=== PATIENT | female | born 1970 | race Hispanic/Latino ===

== ENCOUNTER 2017-10-29 21:33 | Emergency (ER) | payer OTHER, SELFPAY ==
[2017-10-29 22:32] LABS: #Eosinphils 0.1 thou/uL (0.0-0.7); #Lymphocytes 2.5 thou/uL (1.20-3.40); #Monocytes 0.5 thou/uL (0.11-0.59); #Neutrophils 4.3 thou/uL (1.40-6.50); %Basophils 0.6 % (0.0-1.0); %Eosinophils 1.2 % (0.0-10.0); %Lymphocytes 33.5 % (21.0-51.0); %Monocytes 7.1 % (0.0-10.0); %Neutrophils 57.5 % (42.0-75.0); Hemoglobin 13.1 g/dL (12.0-16.0); Mean Corpuscular HGB CONC 33.4 g/dL (32.0-36.0); Mean Corpuscular Volume 86.8 fl (81.0-99.0); Platelet Count 278 thou/uL (130-400); RBC Distribution Width 13.5 % (11.5-14.5); Red Blood Cell (RBC) Count 4.51 mill/uL (4.20-5.40); White Blood Cell (WBC) Count 7.5 thou/uL (4.8-10.8)
[2017-10-29 22:45] LABS: ALT (SGPT) 21 U/L (8-55); AST (SGOT) 15 U/L (5-34); Albumin 4.3 g/dL (3.5-5.0); Alkaline Phosphatase 63 U/L (40-150); Anion Gap 13 mmol/L (10-20); BUN (Urea Nitrogen) 14 mg/dL (7.0-18.7); Bilirubin, Total 0.2 mg/dL (0.2-1.2); Calc. Creatinine Clearance 0 mL/min (70-130); Calcium 9.3 mg/dL (7.8-10.44); Carbon Dioxide 28 mmol/L (22-29); Chloride 103 mmol/L (98-107); Estimated GFR-MDRD 81; Globulin 2.6 g/dL (2.4-3.5); Glucose 103 mg/dL (70-105); Potassium 3.5 mmol/L (3.5-5.1); Protein, Total 6.9 g/dL (6.0-8.3); Sodium 140 mmol/L (136-145)
--- NOTE | 2017-10-29 22:46 | RAD ---
TWO VIEWS CHEST: 10/29/17 HISTORY: Chest pain. Discomfort. COMPARISON: 03/12/15. FINDINGS: Two views chest: Normal cardiac silhouette. Pulmonary vessels and hilum are normal. Costophrenic angles are clear. No consolidation or mass. No pneumothorax or osseous abnormalities. IMPRESSION: No acute cardiopulmonary process. POS: [facility]
[2017-10-29 22:49] LABS: CKMB 1.4 ng/mL (0-6.6); Troponin I Less than 0.010 ng/mL (< 0.028)
[2017-10-29 23:35] LABS: BHCG - Serum Negative (NEGATIVE); Pregs Control Background? CLEAR/WHITE (CLR/WHITE); Pregs Control Bar Appear? YES (CONTROL BAR)
[2017-10-30] MEDS ORDERED: Ketorolac Tromethamine 30 MG/ML VIAL ONE (00:37)
== END 2017-10-30 00:50 | disposition home or self-care (01) ==
LOC: ERS 21:33
DX: R07.9 Chest pain, unspecified (principal); Z71.6 Tobacco abuse counseling; I10 Essential (primary) hypertension; F17.210 Nicotine dependence, cigarettes, uncomplicated; I25.2 Old myocardial infarction; Z86.73 Personal history of transient ischemic attack (TIA), and cerebral infarction without residual deficits; Z79.899 Other long term (current) drug therapy
CPT/HCPCS: 36415; 71046; 80053; 82553; 84484; 84703; 85025; 85379; 93005; 96374; 99406; J1885

== ENCOUNTER 2018-04-18 14:04 | Emergency (ER) | payer SELFPAY | END 2018-04-18 16:09 | disposition home or self-care (01) | LOC: ERS 14:04 | DX: J02.9 Acute pharyngitis, unspecified (principal); I10 Essential (primary) hypertension; F32.9 Major depressive disorder, single episode, unspecified; Z79.899 Other long term (current) drug therapy | CPT/HCPCS: 87081; 87430; 99283 ==

== ENCOUNTER 2018-06-26 17:39 | Emergency (ER) | payer SELFPAY ==
--- NOTE | 2018-06-26 18:16 | RAD ---
LEFT HIP TWO VIEWS: 06/26/18 HISTORY: Hip pain. Exam quality is suboptimal related to body habitus. I do not see any acute bony changes of the left h ip. No significant arthritic change. IMPRESSION: Unremarkable left hip. POS: [facility]
--- NOTE | 2018-06-26 18:19 | RAD ---
AP PELVIS: 06/26/18 HISTORY: Left hip pain. Film technique is suboptimal. The pelvic ring appears intact. No fractures are identified. There is s ome arthritic changes of the lower lumbar spine. IMPRESSION: No acute findings. POS: [facility]
[2018-06-26] MEDS ORDERED: Ketorolac Tromethamine 30 MG/ML VIAL ONE (18:53)
== END 2018-06-26 19:40 | disposition home or self-care (01) ==
LOC: ERS 17:39
DX: M54.32 Sciatica, left side (principal); I10 Essential (primary) hypertension; F32.9 Major depressive disorder, single episode, unspecified
CPT/HCPCS: 72170; 96372; J1885

== ENCOUNTER 2018-08-01 18:26 | Emergency (ER) | payer SELFPAY ==
[2018-08-01 19:53] LABS: Bilirubin Negative (Negative); Blood, Urine Moderate (Negative); Clarity CLOUDY (Clear); Glucose, Urine (Dipstick) Negative (Negative); Leukocyte Large (Negative); Nitrite Negative (Negative); Protein, Urine (Dipstick) 100 mg/dL (Neg-Trace); Specific Gravity, Urine 1.024 (1.002-1.036); Urobilinogen 0.2 mg/dL (0.2-1.0); pH, Urine 5.5 (5.0-9.0)
[2018-08-01 19:54] LABS: Bacteria/HPF Rare-Few HPF (None Seen); Hyaline Casts/LPF 0-3 HYALINE CAST LPF (0-3 Hyaline); Squamous Epithelial None Seen HPF (0-3)
[2018-08-01 20:27] LABS: Pregnancy Test - Urine (BHCG) Negative (Negative); Pregu Control Background? CLEAR/WHITE (CLR/WHITE); Pregu Control Bar Appear? YES (CONTROL BAR); Specific Gravity 1.024 (1.002-1.036)
== END 2018-08-01 20:56 | disposition home or self-care (01) ==
LOC: ERS 18:26
DX: N12 Tubulo-interstitial nephritis, not specified as acute or chronic (principal); I10 Essential (primary) hypertension; F32.9 Major depressive disorder, single episode, unspecified; Z79.899 Other long term (current) drug therapy
CPT/HCPCS: 81003; 81015; 81025; 99283

== ENCOUNTER 2018-10-05 16:48 | Observation (INO) | payer SELFPAY ==
[2018-10-05] MEDS ORDERED: Nitroglycerin 2% Ointment 1 INCH/1 GM Packet ONE (17:27)
[2018-10-05] MEDS ORDERED: Aspirin Chewable 81 MG TAB ONE (17:27)
--- NOTE | 2018-10-05 17:44 | RAD ---
FEXAM: Portable chest PROVIDED CLINICAL HISTORY: Chest pain COMPARISON: None FINDINGS: Cardiac and mediastinal silhouette is within normal limits. No focal consolidation, pleural fluid or pneumothorax evident. IMPRESSION: No evidence for an acute cardiopulmonary process.
[2018-10-05 18:12] LABS: Hemoglobin 8.8 g/dL (12.0-16.0); Mean Corpuscular HGB CONC 29.4 g/dL (32.0-36.0); Mean Corpuscular Hemoglobin 18.4 pg (27.0-31.0); Mean Corpuscular Volume 62.7 fL (78.0-98.0); Mean Platelet Volume 6.6 fL (7.4-10.4); Platelet Count 338 thou/uL (130-400); RBC Distribution Width 17.8 % (11.5-14.5); Red Blood Cell (RBC) Count 4.77 mill/uL (4.20-5.40); White Blood Cell (WBC) Count 8.3 thou/uL (4.8-10.8)
[2018-10-05 18:18] LABS: BHCG - Serum Negative (NEGATIVE); Pregs Control Background? CLEAR/WHITE (CLR/WHITE); Pregs Control Bar Appear? YES (CONTROL BAR)
[2018-10-05 18:28] LABS: #Eosinphils 0.1 thou/uL (0.0-0.7); #Lymphocytes 2.1 thou/uL (1.20-3.40); #Monocytes 0.5 thou/uL (0.11-0.59); #Neutrophils 5.5 thou/uL (1.40-6.50); %Basophils 0.4 % (0.0-1.0); %Eosinophils 1.1 % (0.0-10.0); %Monocytes 5.7 % (0.0-10.0); %Neutrophils 66.9 % (42.0-75.0); Anisocytosis SLIGHT = 6-15 cells (100X) (0-5/hpf); Elliptocytes SLIGHT = 2-5 cells (100X) (0-1/hpf); Hypochromia SLIGHT = 6-15 cells (100X) (0-5/hpf); MDiff Complete? YES; Microcytosis MODERATE=15-30 cells (100X) (0-5/hpf); Platelet Morphology Comment Appears Adequate; Poikilocytosis SLIGHT = 6-15 cells (100X) (0-5/hpf); Tear Drops SLIGHT = 2-5 cells (100X) (0-1/hpf)
[2018-10-05] MEDS ORDERED: Nitroglycerin 0.4 MG TAB 1 EACH ONE (18:35)
[2018-10-05 18:37] LABS: ALT (SGPT) 36 U/L (8-55); AST (SGOT) 37 U/L (5-34); Albumin 4.4 g/dL (3.5-5.0); Alkaline Phosphatase 78 U/L (40-150); Anion Gap 12 mmol/L (10-20); BUN (Urea Nitrogen) 12 mg/dL (7.0-18.7); Bilirubin, Total 0.4 mg/dL (0.2-1.2); CK (CPK) 119 U/L (29-168); Calc. Creatinine Clearance 0 mL/min (70-130); Calcium 9.3 mg/dL (7.8-10.44); Carbon Dioxide 29 mmol/L (22-29); Chloride 101 mmol/L (98-107); Estimated GFR-MDRD Greater than 90; Globulin 3.2 g/dL (2.4-3.5); Glucose 119 mg/dL (70-105); Lipase 20 U/L (8-78); Potassium 3.7 mmol/L (3.5-5.1); Protein, Total 7.6 g/dL (6.0-8.3); Sodium 138 mmol/L (136-145)
[2018-10-05] MEDS ORDERED: Acetaminophen 500 MG TAB ONE (18:42)
[2018-10-05] MEDS ORDERED: hydrALAZINE 20 MG/ML VIAL ONE (19:16)
[2018-10-05 20:54] VITALS: BMI 49.3
[2018-10-05 21:56] LABS: Troponin I Less than 0.010 ng/mL (< 0.028)
--- NOTE | 2018-10-05 22:34 | PDOC.EVN ---
Event Note - Event Note Event Note: H&P [id number]
[2018-10-05] MEDS ORDERED: Zolpidem Tartrate 5 MG TAB PO PRN (22:35)
[2018-10-05] MEDS ORDERED: Ondansetron PF 4 MG/2 ML Vial IVP PRN (22:35)
[2018-10-05] MEDS ORDERED: Acetaminophen 325 MG TAB PO PRN (22:35)
[2018-10-05] MEDS ORDERED: Senokot S 8.6-50 MG TAB PO PRN (22:35)
--- NOTE | 2018-10-05 23:22 | HP ---
CHIEF COMPLAINT: Chest pain. HISTORY OF PRESENT ILLNESS: This is a 48-year-old female, presenting to the hospital because of abnormal EKG outpatient by PCP evaluation earlier today. The patient coming in with chest pain on exertion. The patient otherwise denies any other associated symptoms. No nausea, vomiting, diarrhea, constipation, fevers, chills, or shortness of breath noted. The patient states that this is the first time she has had this chest pain. No other alleviating or aggravating factors. The patient was seen and examined. Family at bedside. All questions answered. ALLERGIES: TO SULFA DRUGS. PAST MEDICAL HISTORY: Positive for hypertension. REVIEW OF SYSTEMS: All systems reviewed. Pertinent positive in the HPI. SOCIAL HISTORY: Nondrinker and nonsmoker. HOME MEDICATIONS: See MAR. FAMILY HISTORY: Hypertension. PHYSICAL EXAMINATION: VITAL SIGNS: Blood pressure was 165/88, pulse of 88, respiratory rate of 18, O2 saturation 97% on room air, and temperature 98.7. GENERAL: The patient is sitting in bed, in no acute discomfort. HEENT: Pupils are equal, round, and reactive to light and accommodation. Extraocular muscles are intact. Oral cavity is moist and pink. NECK: Supple, mobile, and nontender. Thyroid appreciated. PULMONARY: Clear to auscultation bilaterally. No increase in AP diameter. No respiratory distress. CARDIOVASCULAR: Regular rate and rhythm. S1 and S2. No murmurs, rubs, or gallops appreciated. ABDOMEN: Positive bowel sounds. Soft, nontender, and nondistended. EXTREMITIES: 2+ peripheral pulses noted. No cyanosis, clubbing, or edema noted. NEUROLOGIC: Cranial nerves 2 through 12 are intact. Oral cavity is moist and pink. LABORATORY DATA: Laboratory dougherty: CBC reviewed. Basic metabolic panel reviewed. D-dimer reviewed. Troponin negative x2, thus far. ASSESSMENT: 1. Hypertension. 2. Chest pain. 3. Anemia, likely due to iron deficiency given low MCV. PLAN: At this point in time, we will admit the patient to Internal Medicine Team. We will provide her with aspirin for now. We will trend troponins. We will also check iron levels. The patient likely will need p.o. iron given low MCV and probability of iron-deficiency anemia playing a role here given her low hemoglobin. If troponins are negative, the patient will likely need to follow up with outpatient cardiology for stress test. Case and plan discussed with the patient at length. She understands and agrees to this plan. She wishes to remain a full code. Job ID: [id number]
[2018-10-06 01:07] LABS: Troponin I Less than 0.010 ng/mL (< 0.028)
[2018-10-06 06:52] LABS: Cardiac Risk 4.3 (Less than 4.5)
[2018-10-06 06:53] LABS: Anion Gap 11 mmol/L (10-20); BUN (Urea Nitrogen) 11 mg/dL (7.0-18.7); Calc. Creatinine Clearance 227 mL/min (70-130); Calcium 9.4 mg/dL (7.8-10.44); Carbon Dioxide 31 mmol/L (22-29); Chloride 102 mmol/L (98-107); Estimated GFR-MDRD Greater than 90; Glucose 113 mg/dL (70-105); Iron 9 ug/dL (50-170); Iron Binding Capacity, Total 508 mcg/dL (265-497); Potassium 3.9 mmol/L (3.5-5.1); Sodium 140 mmol/L (136-145)
[2018-10-06 07:23] LABS: #Eosinphils 0.1 thou/uL (0.0-0.7); #Lymphocytes 2.2 thou/uL (1.20-3.40); #Monocytes 0.5 thou/uL (0.11-0.59); #Neutrophils 4.2 thou/uL (1.40-6.50); %Basophils 0.3 % (0.0-1.0); %Eosinophils 1.4 % (0.0-10.0); %Lymphocytes 31.2 % (21.0-51.0); %Neutrophils 60.1 % (42.0-75.0); Hemoglobin 8.6 g/dL (12.0-16.0); Hypochromia SLIGHT = 6-15 cells (100X) (0-5/hpf); MDiff Complete? YES; Mean Corpuscular HGB CONC 29.6 g/dL (32.0-36.0); Mean Corpuscular Hemoglobin 18.9 pg (27.0-31.0); Mean Corpuscular Volume 63.9 fL (78.0-98.0); Mean Platelet Volume 5.8 fL (7.4-10.4); Microcytosis MODERATE=15-30 cells (100X) (0-5/hpf); Ovalocytes SLIGHT = 2-5 cells (100X) (0-1/hpf); Platelet Count 310 thou/uL (130-400); Platelet Morphology Comment Appears Adequate; Polychromasia SLIGHT = 2-3 cells (100X) (0-2/hpf); RBC Distribution Width 17.8 % (11.5-14.5); Red Blood Cell (RBC) Count 4.53 mill/uL (4.20-5.40); White Blood Cell (WBC) Count 6.9 thou/uL (4.8-10.8)
[2018-10-06 08:28] LABS: Troponin I Less than 0.010 ng/mL (< 0.028)
[2018-10-06] MEDS ORDERED: Iron Sucrose Complex 100 MG in Sodium Chloride 0.9% 100 ML IVPB SCH (08:45)
[2018-10-06] MEDS ORDERED: Iron, Sodium Ferric Gluconate 125 MG in Sodium Chloride 0.9% 100 ML IVPB SCH ×2 (09:00→15:15)
[2018-10-06] MEDS ORDERED: hydrALAZINE 20 MG/ML VIAL SLOW IVP SCH (11:15)
[2018-10-06] MEDS ORDERED: hydrALAZINE 20 MG/ML VIAL ONE (11:39)
[2018-10-06] MEDS: Lisinopril 20 MG TAB PO SCH ×2 (11:40→19:56)
[2018-10-06] MEDS: Ferrous Sulfate 325 MG TAB PO SCH ×2 (11:41→16:10)
[2018-10-06] MEDS: Hydrochlorothiazide 25 MG TAB PO SCH (11:41)
--- NOTE | 2018-10-06 16:10 | PDOC.PN ---
- Subjective Encounter Start Date: 10/06/18 Encounter Start Time: 10:00 Subjective: pt up in bed no complains - Objective Vital Signs & Weight: Vital Signs (12 hours) Temp Pulse Resp BP Pulse Ox 10/06/18 15:09 98.5 F 99 16 178/79 H 94 L 10/06/18 11:05 98.2 F 84 14 172/80 H 95 10/06/18 07:30 98.1 F 87 16 172/64 H 95 10/06/18 04:23 98.6 F 77 18 165/84 H 96 Weight Weight 296 lb 6.4 oz I&O: 10/05/18 10/06/18 10/07/18 06:59 06:59 06:59 Intake Total 720 Output Total 600 700 Balance 120 -700 Result Diagrams: 10/06/18 05:27 10/06/18 05:27 Phys Exam - Physical Examination Neck: no nodes, no JVD, supple, full ROM Respiratory: no wheezing, no rales, no rhonchi, wheezing present, clear to auscultation bilateral Cardiovascular: RRR, no significant murmur, no rub, gallop, irregular Gastrointestinal: soft, non-tender, no distention, positive bowel sounds Dx/Plan (1) Chest pain Code(s): R07.9 - CHEST PAIN, UNSPECIFIED Status: Acute (2) Hypertension Code(s): I10 - ESSENTIAL (PRIMARY) HYPERTENSION Status: Acute (3) Microcytic anemia Code(s): D50.9 - IRON DEFICIENCY ANEMIA, UNSPECIFIED Status: Acute (4) Obesity Code(s): E66.9 - OBESITY, UNSPECIFIED Status: Acute - Plan will add norvasc -: will also add lisinopril bid. iron added. -: pt undergoing stress test * . Review of Systems - Review of Systems Respiratory: negative: Cough, Dry, Shortness of Breath, Hemoptysis, SOB with Excertion, Pleuritic Pain, Sputum, Wheezing Cardiovascular: negative: chest pain, palpitations, orthopnea, paroxysmal nocturnal dyspnea, edema, light headedness, other Gastrointestinal: negative: Nausea, Vomiting, Abdominal Pain, Diarrhea, Constipation, Melena, Hematochezia, Other - Medications/Allergies Allergies/Adverse Reactions: Allergies Allergy/AdvReac Type Severity Reaction Status Date / Time sulfamethoxazole Allergy Rash Verified 03/12/14 01:07 [From Bactrim] trimethoprim [From Bactrim] Allergy Rash Verified 03/12/14 01:07 Medications: Current Medications Acetaminophen (Tylenol) 650 mg PO Q4H PRN PRN Reason: Headache/Fever/Mild Pain (1-3) Amlodipine Besylate (Norvasc) 10 mg PO DAILY [facility] Ferrous Sulfate (Feosol) 325 mg PO BID-[facility] Last Admin: 10/06/18 11:41 Dose: Not Given Hydrochlorothiazide (Hydrochlorothiazide) 25 mg PO DAILY [facility] Last Admin: 10/06/18 11:41 Dose: 25 mg Ferric Sodium Gluconate Complex 125 mg/ Sodium Chloride 110 mls @ 209.524 mls/ hr IVPB NOW [facility] Stop: 10/06/18 18:15 Last Admin: 10/06/18 16:04 Dose: 110 mls Lisinopril (Zestril) 20 mg PO BID [facility] Last Admin: 10/06/18 11:40 Dose: 20 mg Non-Formulary Medication (Quinapril Hcl [Accupril]) 20 mg PO [facility] Ondansetron HCl (Zofran) 4 mg IVP Q6H PRN PRN Reason: Nausea/Vomiting Senna/Docusate Sodium (Senokot S) 2 tab PO BID PRN PRN Reason: Constipation Sodium Chloride (Flush - Normal Saline) 10 ml IVF Q12HR [facility] Last Admin: 10/06/18 11:42 Dose: 10 ml Sodium Chloride (Flush - Normal Saline) 10 ml IVF PRN PRN PRN Reason: Saline Flush Zolpidem Tartrate (Ambien) 5 mg PO HSPRN PRN PRN Reason: Insomnia
[2018-10-06 16:12] LABS: Bilirubin Negative (Negative); Blood, Urine Moderate (Negative); Clarity CLOUDY (Clear); Glucose, Urine (Dipstick) Negative (Negative); Leukocyte Large (Negative); Nitrite Negative (Negative); Protein, Urine (Dipstick) Negative (Neg-Trace); Specific Gravity, Urine 1.009 (1.002-1.036); Urobilinogen 0.2 mg/dL (0.2-1.0)
[2018-10-06 16:14] LABS: Bacteria/HPF 2+ HPF (None Seen); Hyaline Casts/LPF 0-3 HYALINE CAST LPF (0-3 Hyaline); Pathc Cast-AUWi Flag 0.13 (0-2.49); RBC/HPF 21-50 HPF (0-3); Squamous Epithelial None Seen HPF (0-3)
[2018-10-06] MEDS ORDERED: Amlodipine 10 MG TAB PO SCH (16:15)
[2018-10-06] MEDS ORDERED: QUINAPRIL HCL 20 MG PO SCH (21:00)
[2018-10-07] MEDS: Lisinopril 20 MG TAB PO SCH (07:41)
[2018-10-07] MEDS: Hydrochlorothiazide 25 MG TAB PO SCH (07:42)
[2018-10-07] MEDS: Ferrous Sulfate 325 MG TAB PO SCH (07:42)
[2018-10-07 08:41] VITALS: BP 137/72; TEMP 97.8
[2018-10-07] MEDS ORDERED: Iron Sucrose Complex 200 MG in Sodium Chloride 0.9% 250 ML 250 ML IVPB SCH (09:00)
[2018-10-07] MEDS ORDERED: Amlodipine 10 MG TAB PO SCH (09:00)
[2018-10-07] MEDS ORDERED: Iron, Sodium Ferric Gluconate 250 MG in Sodium Chloride 0.9% 250 ML 250 ML IVPB SCH (09:15)
--- NOTE | 2018-10-07 09:31 | NM ---
[facility] Cardiac myocardial perfusion SPECT Ejection fraction study Wall motion cine: Date: October 07, 2018. TECHNIQUE: Number of days:2 Rest study: Technetium 99m-sestamibi (Cardiolite) dose:32.10 mCi Pharmacologic stress: Adenosine dose:75.6 mg Stress study: Technetium 99m-sestamibi (Cardiolite) dose:28.60 mCi FINDINGS: Cardiac (myocardial perfusion) SPECT There are no reversible myocardial perfusion defects. Ejection fraction study Left ventricular EF = 61% Wall motion cine Dyskinesia of the septal wall. IMPRESSION: No evidence of reversible ischemia. Nonspecific dyskinesia of the septal wall. Estimated LVEF of 61%.
--- NOTE | 2018-10-07 10:47 | PDOC.EVN ---
Event Note - Event Note Event Note: DC SUMMARY #[id number]
--- NOTE | 2018-10-08 05:32 | DIS ---
DATE OF ADMISSION: 10/05/2018 DATE OF DISCHARGE: 10/07/2018 ADMITTING COMPLAINT: Chest pain, obesity, hypertension, hyperlipidemia, and anemia. DISCHARGE DIAGNOSES: Chest pain, noncardiac in nature, hypertension, hyperlipidemia, anemia, obesity, stable. HOSPITAL COURSE: This is a 48-year-old female with a BMI of 49, presenting with complaints of chest discomfort and shortness of breath. The patient had admission placed to the internal medicine team, evaluated from a cardiac perspective with a stress test, which showed no reversible defects. The patient also had 4 negative enzymes throughout her stay here, was found to have significant iron deficient anemia with a ferritin of 5.28 and iron saturation of 2. She was given IV iron replacements prior to discharge. Advised heavily to pursue a vegan vegetarian diet as the current diet she is on is slowly basically killing her. The patient stated that she understood, would pursue dietary changes. The patient was also advised to take her medications as prescribed. The patient's daughter was at bedside. Case and plan discussed with patient and daughter at length. They understand and agree with this plan. DIET: Low-fat, low-calorie, high-fiber. CONDITION: Stable. ACTIVITY: As tolerated with assistance as needed. MEDICATIONS: See MAR. FOLLOWUP: Follow up with PCP and Cardiology within 1 to 2 weeks. Case and plan discussed with patient and daughter at length and they understand and agree with this plan. Job ID: [id number]
== END 2018-10-07 13:53 | disposition home or self-care (01) ==
LOC: ERS 16:48 → 2SW 18:42
PROVIDERS: ADMIT Internal Medicine; ATTEND Internal Medicine
DX: R07.89 Other chest pain (principal); I10 Essential (primary) hypertension; E78.5 Hyperlipidemia, unspecified; D50.9 Iron deficiency anemia, unspecified; E66.9 Obesity, unspecified; Z68.42 Body mass index [BMI] 45.0-49.9, adult; Z88.2 Allergy status to sulfonamides; Z79.82 Long term (current) use of aspirin; Z79.899 Other long term (current) drug therapy
CPT/HCPCS: 36415; 71045; 78452; 80048; 80053; 80061; 81001; 82550; 82728; 83540; 83550; 83690; 83880; 84443; 84484; 84703; 85025; 85060; 85379; 93005; 93017; 96361; 96365; 96366; 96374; 96375; 96376; A9500; G0378; J0153; J0360; J2916; J7050

== ENCOUNTER 2018-10-28 18:56 | Emergency (ER) | payer SELFPAY ==
[2018-10-28 20:08] LABS: Hemoglobin 10.3 g/dL (12.0-16.0); Mean Corpuscular HGB CONC 29.5 g/dL (32.0-36.0); Mean Corpuscular Hemoglobin 21.3 pg (27.0-31.0); Mean Corpuscular Volume 72.1 fL (78.0-98.0); Mean Platelet Volume 5.8 fL (7.4-10.4); Platelet Count 386 thou/uL (130-400); RBC Distribution Width 26.5 % (11.5-14.5); Red Blood Cell (RBC) Count 4.83 mill/uL (4.20-5.40); White Blood Cell (WBC) Count 9.7 thou/uL (4.8-10.8)
[2018-10-28 20:28] LABS: ALT (SGPT) 35 U/L (8-55); AST (SGOT) 27 U/L (5-34); Albumin 4.3 g/dL (3.5-5.0); Alkaline Phosphatase 67 U/L (40-150); Anion Gap 13 mmol/L (10-20); BUN (Urea Nitrogen) 16 mg/dL (7.0-18.7); Bilirubin, Total 0.4 mg/dL (0.2-1.2); Calc. Creatinine Clearance 0 mL/min (70-130); Calcium 9.9 mg/dL (7.8-10.44); Carbon Dioxide 29 mmol/L (22-29); Chloride 104 mmol/L (98-107); Estimated GFR-MDRD 78; Globulin 2.7 g/dL (2.4-3.5); Glucose 101 mg/dL (70-105); Potassium 3.7 mmol/L (3.5-5.1); Sodium 142 mmol/L (136-145)
[2018-10-28 20:34] LABS: #Eosinphils 0.1 thou/uL (0.0-0.7); #Lymphocytes 2.2 thou/uL (1.20-3.40); #Monocytes 0.5 thou/uL (0.11-0.59); #Neutrophils 6.8 thou/uL (1.40-6.50); %Basophils 0.4 % (0.0-1.0); %Eosinophils 1.2 % (0.0-10.0); %Lymphocytes 22.5 % (21.0-51.0); %Monocytes 5.6 % (0.0-10.0); %Neutrophils 70.3 % (42.0-75.0); Anisocytosis SLIGHT = 6-15 cells (100X) (0-5/hpf); Hypochromia SLIGHT = 6-15 cells (100X) (0-5/hpf); MDiff Complete? YES; Microcytosis SLIGHT = 6-15 cells (100X) (0-5/hpf); Platelet Morphology Comment Appears Adequate
[2018-10-28 20:41] LABS: Bilirubin Small (Negative); Blood, Urine Large (Negative); Clarity TURBID (Clear); Glucose, Urine (Dipstick) Negative (Negative); Leukocyte Large (Negative); Nitrite Negative (Negative); Protein, Urine (Dipstick) 300 mg/dL (Neg-Trace); Specific Gravity, Urine 1.035 (1.002-1.036); pH, Urine 5.5 (5.0-9.0)
[2018-10-28 20:46] LABS: Bacteria/HPF None Seen HPF (None Seen); Hyaline Casts/LPF 7-10 HYALINE CAST LPF (0-3 Hyaline); Squamous Epithelial 0-3 HPF (0-3)
[2018-10-28 20:47] LABS: Crystals/HPF 2+ AMORPH URATES HPF (Negative); Pathc Cast-AUWi Flag 2.92 (0-2.49); Yeast-AUWi Flag 237.1 (0-25.0); Yeast-All Forms None Seen HPF (None Seen)
[2018-10-28 21:35] LABS: Pregnancy Test - Urine (BHCG) Negative (Negative); Pregu Control Background? CLEAR/WHITE (CLR/WHITE); Pregu Control Bar Appear? YES (CONTROL BAR); Specific Gravity 1.035 (1.002-1.036)
[2018-10-31 19:02] LABS: Chlamydia by PCR Not Detected (NotDetected); GC by PCR Not Detected (NotDetected)
== END 2018-10-28 21:44 | disposition home or self-care (01) ==
LOC: ERS 18:56
DX: N39.0 Urinary tract infection, site not specified (principal); E78.5 Hyperlipidemia, unspecified; I10 Essential (primary) hypertension; Z79.82 Long term (current) use of aspirin; Z79.899 Other long term (current) drug therapy
CPT/HCPCS: 36415; 80053; 81003; 81015; 81025; 85025; 87077; 87086; 87186; 87480; 87491; 87510; 87591; 87660; 99283

== ENCOUNTER 2019-06-30 16:24 | Emergency (ER) | payer SELFPAY ==
[2019-06-30 17:28] LABS: Bilirubin Negative (Negative); Blood, Urine 3+ (Negative); Clarity Extra Turbid (Clear); Glucose, Urine (Dipstick) Normal (Negative); Leukocyte 500 Leu/uL (Negative); Nitrite Negative (Negative); Protein, Urine (Dipstick) 100 mg/dL (Neg-Trace); RBC/HPF Greater than 50 HPF (0-3); Squamous Epithelial 0-3 HPF (0-3); Urobilinogen Normal mg/dL (Less than 2); WBC/HPF Greater than 50 HPF (0-3)
[2019-06-30 17:36] LABS: Bacteria/HPF Rare-Few HPF (None Seen)
== END 2019-06-30 19:20 | disposition home or self-care (01) ==
LOC: ERS 16:24
DX: N39.0 Urinary tract infection, site not specified (principal); E78.5 Hyperlipidemia, unspecified; I10 Essential (primary) hypertension; Z79.82 Long term (current) use of aspirin; Z79.899 Other long term (current) drug therapy
CPT/HCPCS: 81003; 81015; 99283

== ENCOUNTER 2020-06-10 07:02 | Inpatient (IN) | payer SELFPAY ==
[2020-06-10] MEDS ORDERED: Diltiazem 125 MG/25 ML ONE (07:19)
[2020-06-10 07:44] LABS: #Eosinphils 0.1 thou/uL (0.0-0.7); #Lymphocytes 1.7 thou/uL (1.20-3.40); #Monocytes 0.3 thou/uL (0.11-0.59); #Neutrophils 4.6 thou/uL (1.40-6.50); %Basophils 0.3 % (0.0-1.0); %Eosinophils 1.2 % (0.0-10.0); %Lymphocytes 25.4 % (21.0-51.0); %Neutrophils 68.1 % (42.0-75.0); Hemoglobin 11.3 g/dL (12.0-16.0); Mean Corpuscular HGB CONC 31.5 g/dL (32.0-36.0); Mean Corpuscular Hemoglobin 26.4 pg (27.0-31.0); Mean Corpuscular Volume 83.9 fL (78.0-98.0); Mean Platelet Volume 8.3 fL (7.4-10.4); Platelet Count 259 thou/uL (130-400); RBC Distribution Width 12.5 % (11.5-14.5); Red Blood Cell (RBC) Count 4.28 mill/uL (4.20-5.40); White Blood Cell (WBC) Count 6.8 thou/uL (4.8-10.8)
[2020-06-10] MEDS ORDERED: Metoprolol Tartrate 5 MG/5 ML VIAL ONE (08:03)
[2020-06-10 08:08] LABS: ALT (SGPT) 18 U/L (8-55); AST (SGOT) 16 U/L (5-34); Alkaline Phosphatase 75 U/L (40-110); Anion Gap 17 mmol/L (10-20); BUN (Urea Nitrogen) 18 mg/dL (7.0-18.7); Bilirubin, Total 0.3 mg/dL (0.2-1.2); Calc. Creatinine Clearance 0 mL/min (70-130); Calcium 8.7 mg/dL (7.8-10.44); Carbon Dioxide 20 mmol/L (22-29); Chloride 108 mmol/L (98-107); Globulin 2.6 g/dL (2.4-3.5); Glucose 177 mg/dL (70-105); Potassium 3.5 mmol/L (3.5-5.1); Protein, Total 6.6 g/dL (6.0-8.3); Sodium 141 mmol/L (136-145)
[2020-06-10] MEDS ORDERED: Enoxaparin Sodium 100 MG/ML SYRINGE ONE (08:48)
[2020-06-10] MEDS ORDERED: Enoxaparin Sodium 30 MG/0.3 ML SYRINGE ONE (08:48)
[2020-06-10] MEDS ORDERED: Enoxaparin Sodium 40 MG/0.4 ML SYRINGE ONE (08:49)
[2020-06-10] MEDS ORDERED: Enoxaparin Sodium 60 MG/0.6 ML SYRINGE ONE ×2 (08:50→08:53)
[2020-06-10 10:26] LABS: Bilirubin Negative (Negative); Blood, Urine 3+ (Negative); Clarity Clear (Clear); Glucose, Urine (Dipstick) 30 mg/dL (Negative); Ketone, Urine Negative (Negative); Leukocyte 75 Leu/uL (Negative); Nitrite Negative (Negative); Protein, Urine (Dipstick) 70 mg/dL (Neg-Trace); RBC/HPF Greater than 50 HPF (0-3); Specific Gravity, Urine 1.023 (1.002-1.036); Squamous Epithelial 0-3 HPF (0-3); Urobilinogen Normal mg/dL (Less than 2); WBC/HPF 21-50 HPF (0-3); pH, Urine 6.5 (5.0-9.0)
[2020-06-10 10:27] LABS: Bacteria/HPF 1+ HPF (None Seen)
[2020-06-10] MEDS ORDERED: Zolpidem Tartrate 5 MG TAB PO PRN (10:42)
[2020-06-10] MEDS ORDERED: Cepastat Lozenges 1 LOZ PO PRN (10:42)
[2020-06-10] MEDS ORDERED: Acetaminophen 325 MG TAB PO PRN (10:42)
[2020-06-10] MEDS ORDERED: Diltiazem 125 MG in Sodium Chloride 0.9% 100 ML IVPB SCH (10:42)
[2020-06-10] MEDS ORDERED: Diabetic Tussin 200 MG/10 ML UDCUP PO PRN (10:42)
[2020-06-10] MEDS ORDERED: Ondansetron ODT 4 MG TAB PO PRN (10:42)
[2020-06-10] MEDS ORDERED: Calcium Carbonate 500 MG ChewTAB PO PRN (10:42)
[2020-06-10] MEDS ORDERED: Guaifenesin DM 100-10/5 ML UDCUP PO PRN (10:42)
[2020-06-10] MEDS ORDERED: Labetalol HCl 100 MG/20 ML VIAL SLOW IVP PRN (10:42)
[2020-06-10] MEDS ORDERED: Sodium Chloride 0.65% Nasal 44 ML BOT EA NARE PRN (10:42)
[2020-06-10] MEDS ORDERED: Loperamide HCl 2 MG CAP PO PRN (10:42)
[2020-06-10] MEDS ORDERED: Senokot S 8.6-50 MG TAB PO PRN (10:42)
[2020-06-10] MEDS ORDERED: Bisacodyl 10 MG SUPP PR PRN (10:42)
[2020-06-10] MEDS ORDERED: Loratadine 10 MG TAB PO PRN (10:42)
[2020-06-10] MEDS ORDERED: HYDROcodone/Acetaminophen 5/325 mg Tablet PO PRN (10:42)
[2020-06-10] MEDS ORDERED: Ondansetron PF 4 MG/2 ML Vial IVP PRN (10:42)
[2020-06-10 11:13] LABS: Troponin I 0.235 ng/mL (< 0.028)
--- NOTE | 2020-06-10 11:16 | PDOC.HHP ---
Hospitalist HPI - History of Present Illness Chest pain and shortness of breath History of Present Illness: 50-year-old female who has morbid obesity who came to emergency room with a complaint of shortness of breath and chest pain. Patient reports that this morning when she woke up at that time she was feeling shortness of breath, she was also pointed feeling burning sensation on her left side of the chest and subsequently that moved to right side of the chest, she denies any dizziness or palpitation. She did not have any fever or chills. Patient does not remember having atrial fibrillation or congestive heart failure. When she presented to emergency room she was found with A. fib with RVR, patient was given 20 mg Cardizem and subsequently another dose of we will give 1 and drip was started at 5 mg/h, in the emergency room subsequently Cardizem drip was discontinued and her heart rate was going up to 1 30-1 40, so we have to restart Cardizem drip again. Patient denies any nausea vomiting diarrhea or melena or hematochezia, denies any upper or lower respiratory symptoms, patient denies any lower extremity edema orthopnea or PND. In the emergency room patient was found with A. fib with RVR again and so Cardizem drip started, patient was given Lovenox 1 mg/kg, patient was also given 1 dose of metoprolol. ED Course: Metoprolol 5 mg IV one-time dose, Cardizem drip, IV fluid, Lovenox 1 mg/kg Hospitalist ROS - Review of Systems Eyes: denies: pain, vision change, conjunctivae inflammation, eyelid inflammation, redness, other ENT: denies: ear pain, ear discharge, nose pain, nose discharge, nose congestion, mouth pain, mouth swelling, throat pain, throat swelling, other Respiratory: reports: SOB with excertion. denies: cough, dry, shortness of breath, hemoptysis, pleuritic pain, sputum, wheezing, other Cardiovascular: reports: chest pain. denies: palpitations, orthopnea, paroxysmal noc. dyspnea, edema, light headedness, other Gastrointestinal: denies: nausea, vomiting, abdominal pain, diarrhea, constipation, melena, hematochezia, other Genitourinary: denies: dysuria, frequency, incontinence, hematuria, retention, other Musculoskeletal: denies: neck pain, shoulder pain, arm pain, back pain, hand pain, leg pain, foot pain, other Hospitalist History - Past Medical History Other Medical History: Diabetes type 2, Hypertension Dyslipidemia Obesity - Past Surgical History Other Surgical History: Hernia repair Oophorectomy Past psychiatric history anxiety and depression - Family History Other Family History: No strong family history of premature coronary artery disease stroke or cancer - Social History Other Social History: Patient is former smoker, she quit smoking 10 years ago, no alcohol no other illicit drug abuse - Exam General Appearance: NAD, awake alert Eye: PERRL, anicteric sclera ENT: normocephalic atraumatic, no oropharyngeal lesions Neck: supple, symmetric, no JVD, no thyromegaly Heart: no murmur, no gallops, no rubs, irregular Respiratory: CTAB, no wheezes, no rales, no ronchi Gastrointestinal: soft, non-tender, non-distended, normal bowel sounds, no palpable masses Gastrointestinal - other findings: Obesity noted Extremities: no cyanosis, no clubbing, no edema Skin: normal turgor, no lesions Neurological: no focal deficits Musculoskeletal: normal tone, normal strength Psychiatric: normal affect, normal behavior, A&O x 3 Hospitalist Results - Labs Result Diagrams: 06/10/20 07:36 06/10/20 07:36 Lab results: WBC 6.8 thou/uL (4.8-10.8) 06/10/20 07:36 Hgb 11.3 g/dL (12.0-16.0) L 06/10/20 07:36 Hct 35.9 % (36.0-47.0) L 06/10/20 07:36 MCV 83.9 fL (78.0-98.0) 06/10/20 07:36 Plt Count 259 thou/uL (130-400) 06/10/20 07:36 Neutrophils % 68.1 % (42.0-75.0) 06/10/20 07:36 Sodium 141 mmol/L (136-145) 06/10/20 07:36 Potassium 3.5 mmol/L (3.5-5.1) 06/10/20 07:36 Chloride 108 mmol/L (98-107) H 06/10/20 07:36 Carbon Dioxide 20 mmol/L (22-29) L 06/10/20 07:36 BUN 18 mg/dL (7.0-18.7) 06/10/20 07:36 Creatinine 0.89 mg/dL (0.6-1.1) 06/10/20 07:36 Glucose 177 mg/dL (70-105) H 06/10/20 07:36 Calcium 8.7 mg/dL (7.8-10.44) 06/10/20 07:36 Total Bilirubin 0.3 mg/dL (0.2-1.2) 06/10/20 07:36 AST 16 U/L (5-34) 06/10/20 07:36 ALT 18 U/L (8-55) 06/10/20 07:36 Alkaline Phosphatase 75 U/L (40-110) 06/10/20 07:36 Troponin I 0.235 ng/mL (< 0.028) H 06/10/20 10:39 B-Natriuretic Peptide 17.3 pg/mL (0-100) 06/10/20 07:36 Serum Total Protein 6.6 g/dL (6.0-8.3) 06/10/20 07:36 Albumin 4.0 g/dL (3.5-5.0) 06/10/20 07:36 Urine Ketones Negative mg/dL (Negative) 06/10/20 09:52 Urine Blood 3+ (Negative) A 06/10/20 09:52 Urine Nitrite Negative (Negative) 06/10/20 09:52 Ur Leukocyte Esterase 75 Bing/uL (Negative) A 06/10/20 09:52 Urine RBC Greater than 50 HPF (0-3) A 06/10/20 09:52 Urine WBC 21-50 HPF (0-3) A 06/10/20 09:52 Ur Squamous Epith Cells 0-3 HPF (0-3) 06/10/20 09:52 Urine Bacteria 1+ HPF (None Seen) A 06/10/20 09:52 - EKG Interpretation EK lead EKG shows, atrial fibrillation with rapid ventricular response, Rate (beats per minute): 99, with no ectopics, Conduction with, no block present, ST, depression, in V4, in V5, in V6, T waves normal, Preston normal, Clinical impression:, dysrhythmia - atrial, no stemi. afib with RVR. 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 intermodal yard use (4) Obesity (BMI 30-39.9) Code(s): E66.9 - OBESITY, UNSPECIFIED Status: Chronic (5) Dyslipidemia Code(s): E78.5 - HYPERLIPIDEMIA, UNSPECIFIED Status: Chronic (6) Hypertension Code(s): I10 - ESSENTIAL (PRIMARY) HYPERTENSION Status: Chronic Qualifiers: Hypertension type: essential hypertension Qualified Code(s): I10 - Essential (primary) hypertension - Plan Plan: Regarding fibrillation with rapid ventricular response, patient will be kept on Cardizem drip for rate control, Lovenox 1 mg/kg subcu twice daily will be given for elevated chads 2 score, cardiology will be consulted, echocardiography will be obtained Regarding hypertension, dyslipidemia, will resume her home medication as tolerated Regarding diabetes we will start insulin as per sliding scale protocol Regarding UTI, patient is asymptomatic, urine analysis consistent with UTI, will send urine culture and start Rocephin 1 g every 24 hours DVT prophylaxis Lovenox GI prophylaxis Pepcid 20 mg p.o. twice daily CODE STATUS patient is full code Disposition plan based on clinical course, we are expecting patient stay in hospital more than 2 midnights.
[2020-06-10 11:17] LABS: Hemoglobin A1c 6.3 % (4.0-6.0)
[2020-06-10] MEDS ORDERED: HumaLOG 300 UNITS/3 ML VIAL SC PRN ×2 (11:18)
[2020-06-10] MEDS ORDERED: Dextrose 50% Abboject 50 ML SYRINGE SLOW IVP PRN (11:18)
[2020-06-10] MEDS ORDERED: Dextrose 5% in Water 1,000 ML IV PRN (11:18)
[2020-06-10] MEDS ORDERED: cefTRIAXone\\ROCEPHIN 1 GM in Sodium Chloride 0.9% 100 ML IVPB SCH (12:00)
--- NOTE | 2020-06-10 12:26 | RAD ---
AP CHEST: HISTORY: Chest pain. COMPARISON: 10/05/2018 exam. FINDINGS/IMPRESSION: Lungs appear clear of focal infiltrate. The heart is enlarged and there is mild vascular engorgement . Lung bases are poorly evaluated due to soft tissue attenuation. No definite infiltrate apparent. POS: [facility]
[2020-06-10 13:01] VITALS: BMI 55.2
[2020-06-10] MEDS ORDERED: FLU VACC QS2020-21(6MOS UP)/PF 60 MCG/0.5 ML SYRINGE IM ONE (13:15)
[2020-06-10 14:36] LABS: Troponin I 0.417 ng/mL (< 0.028)
[2020-06-10] MEDS: cefTRIAXone\\ROCEPHIN 1 GM in Sodium Chloride 0.9% 100 ML IVPB SCH (17:46)
[2020-06-10] MEDS ORDERED: Amiodarone 150 MG, Admixture Fee 1 EACH in Dextrose 5% in Water 100 ML IVPB SCH (18:45)
[2020-06-10] MEDS: Amiodarone 450 MG, Admixture Fee 1 EACH in Dextrose 5% in Water 250 ML IVPB SCH (19:53)
[2020-06-10] MEDS ORDERED: Enoxaparin Sodium 40 MG/0.4 ML SYRINGE SC SCH (21:00)
[2020-06-10] MEDS: Atorvastatin Calcium 40 MG TAB PO SCH (21:09)
[2020-06-10] MEDS: Famotidine 20 MG TAB PO SCH (21:09)
[2020-06-10] MEDS: Enoxaparin Sodium 120 MG/0.8 ML SYRINGE SC SCH (21:10)
[2020-06-10] MEDS: Enoxaparin Sodium 30 MG/0.3 ML SYRINGE SC SCH (21:10)
--- NOTE | 2020-06-10 22:24 | CON ---
DATE OF CONSULTATION: HISTORY OF PRESENT ILLNESS: The patient is a 50-year-old woman with no known cardiac history, who presents for evaluation of palpitations and chest discomfort. The patient was seen approximately a year ago for cardiac evaluation. She underwent a Cardiolite stress test revealed no evidence of ischemia with an ejection fraction of 61%. The patient was in her usual state of health when she suddenly felt severe palpitations. The patient also reported having left-sided chest discomfort. The patient has multiple cardiac risk factors including diabetes mellitus, hypertension, and dyslipidemia. PAST MEDICAL HISTORY: 1. Diabetes mellitus. 2. Hypertension. 3. Dyslipidemia. PAST SURGICAL HISTORY: Hernia surgery, ovarian surgery, and . SOCIAL HISTORY: Nonsmoker. MEDICATIONS: 1. Glipizide 10 daily. 2. Quinapril 20 daily. 3. Hydrochlorothiazide 25 daily. 4. Lipitor 40 at bedtime. ALLERGIES: BACTRIM. REVIEW OF SYSTEMS: Ten-point system otherwise unremarkable. No history of easy bruising or bleeding. PHYSICAL EXAMINATION: GENERAL: This is an obese woman, in no acute distress. VITAL SIGNS: Blood pressure 158/95. NECK: Showed no jugular venous distention. LUNGS: Clear to auscultation. HEART: Irregular rate and rhythm. Normal S1 and S2. ABDOMEN: Markedly distended. EXTREMITIES: Showed mild edema. LABORATORY DATA: White blood cell count 6.8, hemoglobin 11.3, hematocrit 35.9, and platelets 259. Sodium was 141, potassium 3.5, chloride 108, bicarbonate 20, BUN 18, creatinine 0.89, and glucose 177. Troponin 2.235. White blood cell count 6.8, hemoglobin 11.3, hematocrit 35.9, and platelets are 259. EKG atrial fibrillation with a nonspecific ST-T wave abnormality. IMPRESSION AND PLAN: 1. New-onset atrial fibrillation. 2. Diabetes mellitus. 3. Hypertension. 4. Morbid obesity. This patient presents with new-onset atrial fibrillation. From a cardiac standpoint, her rate remains elevated on IV Cardizem. We would recommend switching her to IV amiodarone. The patient remains in atrial fibrillation. We recommend proceeding with electrocardioversion. The patient is on appropriate anticoagulation therapy. We will follow this patient with you through her hospitalization. Job ID: [id number] [facility]
[2020-06-10 22:35] LABS: SARS-CoV-2 MS2 Positive; SARS-CoV-2 N Gene Negative; SARS-CoV-2 S Gene Negative; SARS-CoV-2 by NAA Not Detected (NotDetected); SARS-CoV-2 orf1ab Negative
[2020-06-11] MEDS: Amiodarone 450 MG, Admixture Fee 1 EACH in Dextrose 5% in Water 250 ML IVPB SCH (04:22)
[2020-06-11 04:59] LABS: #Eosinphils 0.2 thou/uL (0.0-0.7); #Lymphocytes 2.5 thou/uL (1.20-3.40); #Monocytes 0.5 thou/uL (0.11-0.59); %Basophils 0.5 % (0.0-1.0); %Eosinophils 2.6 % (0.0-10.0); %Lymphocytes 29.7 % (21.0-51.0); %Monocytes 6.2 % (0.0-10.0); Hemoglobin 10.5 g/dL (12.0-16.0); Mean Corpuscular HGB CONC 31.3 g/dL (32.0-36.0); Mean Corpuscular Hemoglobin 26.2 pg (27.0-31.0); Mean Corpuscular Volume 83.6 fL (78.0-98.0); Mean Platelet Volume 8.6 fL (7.4-10.4); Platelet Count 252 thou/uL (130-400); RBC Distribution Width 12.6 % (11.5-14.5); Red Blood Cell (RBC) Count 4.01 mill/uL (4.20-5.40); White Blood Cell (WBC) Count 8.3 thou/uL (4.8-10.8)
[2020-06-11 05:39] LABS: ALT (SGPT) 16 U/L (8-55); AST (SGOT) 16 U/L (5-34); Albumin 3.9 g/dL (3.5-5.0); Alkaline Phosphatase 62 U/L (40-110); Anion Gap 13 mmol/L (10-20); BUN (Urea Nitrogen) 15 mg/dL (7.0-18.7); Bilirubin, Total 0.4 mg/dL (0.2-1.2); Calc. Creatinine Clearance 247 mL/min (70-130); Calcium 8.5 mg/dL (7.8-10.44); Carbon Dioxide 24 mmol/L (22-29); Chloride 106 mmol/L (98-107); Globulin 2.5 g/dL (2.4-3.5); Glucose 124 mg/dL (70-105); Potassium 3.7 mmol/L (3.5-5.1); Protein, Total 6.4 g/dL (6.0-8.3); Sodium 139 mmol/L (136-145)
[2020-06-11] MEDS: Famotidine 20 MG TAB PO SCH ×2 (08:28→21:20)
[2020-06-11] MEDS: Enoxaparin Sodium 30 MG/0.3 ML SYRINGE SC SCH (08:29)
[2020-06-11] MEDS: Enoxaparin Sodium 120 MG/0.8 ML SYRINGE SC SCH (08:29)
[2020-06-11] MEDS ORDERED: Aspirin 325 MG TAB PO SCH (09:00)
--- NOTE | 2020-06-11 10:28 | PDOC.HOSPP ---
- Subjective Encounter Date: 06/11/20 Encounter Time: 07:00 Subjective: Seen and examined bedside today, no overnight event, no new complaint, patient is overall doing better, she does not have any chest pain or shortness of breath, patient has been converted to normal sinus rhythm - Objective Vital Signs & Weight: Vital Signs (12 hours) Temp Pulse Resp BP Pulse Ox 06/11/20 07:17 97.6 F 63 16 168/84 H 97 06/11/20 03:59 97.5 F L 68 16 183/87 H 98 06/10/20 23:20 97.8 F 125 H 16 145/92 H 97 Weight Weight 329 lb I&O: 06/10/20 06/11/20 06/12/20 06:59 06:59 06:59 Intake Total 220 Output Total 400 Balance -180 Result Diagrams: 06/11/20 04:21 06/11/20 04:21 Additional Labs: Accuchecks 06/11/20 06/10/20 06/10/20 05:11 20:52 17:02 POC Glucose 113 H 106 H 140 H 06/10/20 06/10/20 14:34 12:25 POC Glucose 117 H 140 H EKG Reviewed by me: Yes (Currently normal sinus rhythm) Hospitalist ROS - Review of Systems Constitutional: denies: fever, chills, sweats, weakness, malaise, other Respiratory: denies: cough, dry, shortness of breath, hemoptysis, SOB with excertion, pleuritic pain, sputum, wheezing, other Cardiovascular: denies: chest pain, palpitations, orthopnea, paroxysmal noc. dys pnea, edema, light headedness, other Gastrointestinal: denies: nausea, vomiting, abdominal pain, diarrhea, constipation, melena, hematochezia, other Genitourinary: denies: dysuria, frequency, incontinence, hematuria, retention, other Musculoskeletal: denies: neck pain, shoulder pain, arm pain, back pain, hand pain, leg pain, foot pain, other - Medication Medications: Active Medications Generic Name Dose Route Start Last Admin Trade Name Freq PRN Reason Stop Dose Admin Acetaminophen 650 mg 06/10/20 10:42 06/11/20 08:28 Acetaminophen 325 Mg Tab PO 650 mg Q4H PRN Administration Headache/Fever/Mild Pain (1-3) Atorvastatin Calcium 40 mg 06/10/20 21:00 06/10/20 21:09 Atorvastatin Calcium 40 Mg Tab PO 40 mg HS KYE Administration Famotidine 20 mg 06/10/20 21:00 06/11/20 08:28 Famotidine 20 Mg Tab PO 20 mg BID KYE Administration Ceftriaxone Sodium 1 gm/ 100 mls @ 200 mls/hr 06/10/20 17:00 06/10/20 17:46 Sodium Chloride IVPB 100 mls 1700 KYE Administration - Exam General Appearance: NAD, awake alert Eye: PERRL, anicteric sclera ENT: normocephalic atraumatic, no oropharyngeal lesions Neck: supple, symmetric, no JVD, no thyromegaly Heart: no murmur, no gallops, no rubs Respiratory: no wheezes, no rales, no ronchi Gastrointestinal: soft, non-tender, non-distended, normal bowel sounds, no palpable masses Gastrointestinal - other findings: Obesity Extremities: no clubbing, no edema Skin: normal turgor, no lesions Neurological: no focal deficits Musculoskeletal: normal tone, normal strength Psychiatric: normal affect, normal behavior, A&O x 3 Hosp A/P (1) Atrial fibrillation with RVR Code(s): I48.91 - UNSPECIFIED ATRIAL FIBRILLATION Status: Acute Plan: Patient was started on amiodarone drip, patient is converted him, currently patient is asymptomatic, today amiodarone drip discontinued and started on Toprol-XL, Lovenox changed to Eliquis (2) UTI (urinary tract infection) Status: Acute Qualifiers: Urinary tract infection type: acute cystitis Hematuria presence: without hematuria Qualified Code(s): N30.00 - Acute cystitis without hematuria (3) Diabetes type 2, controlled Code(s): E11.9 - TYPE 2 DIABETES MELLITUS WITHOUT COMPLICATIONS Status: C hronic Qualifiers: Diabetes mellitus fpc insulin use: with superintendent container terminal use (4) Dyslipidemia Code(s): E78.5 - HYPERLIPIDEMIA, UNSPECIFIED Status: Chronic (5) Hypertension Code(s): I10 - ESSENTIAL (PRIMARY) HYPERTENSION Status: Chronic Qualifiers: Hypertension type: essential hypertension Qualified Code(s): I10 - Essential (primary) hypertension (6) Morbid obesity with BMI of 50.0-59.9, adult Code(s): E66.01 - MORBID (SEVERE) OBESITY DUE TO EXCESS CALORIES; Z68.43 - BODY MASS INDEX [BMI] 50.0-59.9, ADULT Status: Chronic (7) Anemia, normocytic normochromic Code(s): D64.9 - ANEMIA, UNSPECIFIED Status: Chronic - Plan old records reviewed/req, plan discussed w/ family, continue antibiotics Continue Toprol-XL Continue Rocephin Continue Eliquis Echocardiography pending Follow-up on culture result Expecting discharge tomorrow
[2020-06-11] MEDS: cefTRIAXone\\ROCEPHIN 1 GM in Sodium Chloride 0.9% 100 ML IVPB SCH (16:40)
[2020-06-11] MEDS ORDERED: glipiZIDE 10 MG TAB PO SCH (17:00)
[2020-06-11] MEDS ORDERED: Lisinopril 20 MG TAB PO SCH (21:00)
[2020-06-11] MEDS: Apixaban 5 MG TAB PO SCH (21:20)
[2020-06-11] MEDS: Atorvastatin Calcium 40 MG TAB PO SCH (21:20)
[2020-06-11] MEDS: medroxyPROGESTERone Acetate 5 MG TAB PO SCH (21:24)
[2020-06-12 08:02] VITALS: BP 139/64; TEMP 97.9
[2020-06-12] MEDS ORDERED: Lisinopril 20 MG TAB PO SCH (09:00)
[2020-06-12] MEDS ORDERED: Hydrochlorothiazide 25 MG TAB PO SCH (09:00)
--- NOTE | 2020-06-12 09:56 | PDOC.DS.DS ---
Provider - Provider Date of Admission: 06/10/20 08:55 Date of Discharge: 06/12/20 Admitting Provider: Melanie Dumont MD Consultations: Cardiology Primary Care Physician: [facility] Course - Hospital Course Hospital Course: 50-year-old female who has morbid obesity with BMI 54, she has underlying history of hypertension, diabetes type 2, who was brought to emergency room for complaint of shortness of breath and chest pain, patient was found with new onset atrial fibrillation with rapid ventricular response, patient was given Cardizem bolus and subsequently Cardizem drip was started, patient was also given Lovenox 1 mg/kg in emergency room, patient's rate was not well controlled so she was given metoprolol 5 mg IV one-time dose, Patient was admitted to telemetry floor, she had on admission chest x-ray which was unremarkable, her routine laboratory parameters were normal, her D-dimer was negative, her COVID-19 was negative, her urine analysis was consistent with urinary tract infection so she is treated in hospital with Rocephin, her urine culture grew Streptococcus so we changed to Macrobid upon discharge, Cardiology was consulted and they started amiodarone drip, patient was converted to sinus rhythm, patient was having CHADS2 score three-point so we started Eliquis therapy, echocardiography was obtained which was unremarkable as per cardiology Cardiology cleared her for discharge, patient is completely asymptomatic, patient is converted to sinus rhythm, we have provided new medication prescription to her. She will follow-up with cardiology as instructed. Resuscitation Status: 06/10/20 10:15 Resuscitation Status Routine Resuscitation Status: FULL: Full Resuscitation - Labs Lab Results: 06/11/20 04:21 06/11/20 04:21 Abnormal Lab Results - Last 48 hrs 06/10/20 09:52: Urine Protein 70 A, Urine Blood 3+ A, Ur Leukocyte Esterase 75 A, Urine RBC Greater than 50 A, Urine WBC 21-50 A, Urine Bacteria 1+ A 06/10/20 10:39: Troponin I 0.235 H 06/10/20 11:03: Hemoglobin A1c 6.3 H 06/10/20 13:55: Troponin I 0.417 H* 06/11/20 04:21: RBC 4.01 L, Hgb 10.5 L, Hct 33.5 L, MCH 26.2 L, MCHC 31.3 L Microbiology - Entire Visit 06/10/20 Unknown Urine voided Urine Culture - Final Streptococcus agalactiae Gp. B - Diagnostic Interpretation Chest x-ray Status: image reviewed by me Additional comments: No acute cardiopulmonary process - Physical Exam Vitals: Vital Signs (12 hours) Temp Pulse Resp BP Pulse Ox 06/12/20 07:13 97.9 F 60 20 139/64 97 06/12/20 04:00 98.3 F 66 16 135/69 99 06/11/20 23:53 97.6 F 68 15 149/69 H 98 Weight Weight 329 lb Physical Exam: The patient was seen and examined on the day of discharge. General patient is currently alert and awake no acute distress Head normocephalic atraumatic Neck supple no JVD no meningeal signs of irritation Lungs clear to auscultation without any rhonchi rales Cardiac S1-S2 regular, no murmur no gallop no rub Abdomen obesity noted, bowel sound present, nontender nondistended no organom egaly no mass Extremity no edema Neurologic nonfocal examination Problem - Problem (1) Atrial fibrillation with RVR Code(s): I48.91 - UNSPECIFIED ATRIAL FIBRILLATION Status: Acute (2) UTI (urinary tract infection) Status: Acute Qualifiers: Urinary tract infection type: acute cystitis Hematuria presence: without hematuria Qualified Code(s): N30.00 - Acute cystitis without hematuria (3) Diabetes type 2, controlled Code(s): E11.9 - TYPE 2 DIABETES MELLITUS WITHOUT COMPLICATIONS Status: Chronic Qualifiers: Diabetes mellitus oil heaterman insulin use: with long-term use (4) Dyslipidemia Code(s): E78.5 - HYPERLIPIDEMIA, UNSPECIFIED Status: Chronic (5) Hypertension Code(s): I10 - ESSENTIAL (PRIMARY) HYPERTENSION Status: Chronic Qualifiers: Hypertension type: essential hypertension Qualified Code(s): I10 - Essential (primary) hypertension (6) Morbid obesity with BMI of 50.0-59.9, adult Code(s): E66.01 - MORBID (SEVERE) OBESITY DUE TO EXCESS CALORIES; Z68.43 - BODY MASS INDEX [BMI] 50.0-59.9, ADULT Status: Chronic (7) Anemia, normocytic normochromic Code(s): D64.9 - ANEMIA, UNSPECIFIED Status: Chronic Plan - Discharge Medications Prescriptions: Apixaban [Eliquis] 5 mg PO BID #60 tab Nitrofurantoin Monohyd/M-Cryst [Macrobid] 100 mg PO BID #10 cap Metoprolol Succinate [Toprol XL] 50 mg PO DAILY #30 tab Home Medications: Medication Instructions Recorded Confirmed Type Hydrochlorothiazide 25 mg PO DAILY 03/12/14 06/10/20 History Quinapril HCl [Accupril] 20 mg PO HS 03/12/14 06/10/20 History Atorvastatin Calcium [Lipitor] 40 mg PO HS 06/10/20 06/10/20 History glipiZIDE [Glipizide] 10 mg PO 1700 06/10/20 06/10/20 History medroxyPROGESTERone Acetate 10 mg PO BID 06/10/20 06/10/20 History [Medroxyprogesterone Acetate] Apixaban [Eliquis] 5 mg PO BID #60 tab 06/12/20 Rx Metoprolol Succinate [Toprol XL] 50 mg PO DAILY #30 tab 06/12/20 Rx Nitrofurantoin Monohyd/M-Cryst 100 mg PO BID #10 cap 06/12/20 Rx [Macrobid] Allergies: sulfamethoxazole [From Bactrim] Allergy (Verified 06/10/20 12:57) Rash Pt states she broke out in a rash/hives last time she took this medication. trimethoprim [From Bactrim] Allergy (Verified 06/10/20 12:57) Rash Pt states she broke out in a rash/hives last time she took this medication. - Discharge Instructions Activity:: Activity as Tolerated Nourishment:: Diabetic Diet Therapies:: Not Applicable Equipment/Supplies:: Not Applicable IV Therapy:: Not Applicable - Follow up Plan Referrals: DAVE CHEN MD [MD Not on Staff] - Braeden Nunn MD [Active] - Disposition: HOME Quality - Care Measures CORE MEASURES:: N/A
[2020-06-12] MEDS: Apixaban 5 MG TAB PO SCH (10:09)
[2020-06-12] MEDS: Famotidine 20 MG TAB PO SCH (10:09)
[2020-06-12] MEDS: medroxyPROGESTERone Acetate 5 MG TAB PO SCH (10:10)
== END 2020-06-12 11:33 | disposition home or self-care (01) | DRG 309 ==
LOC: ERS 07:02 → ERHOLD 08:55 → 2SE 16:06
PROVIDERS: ADMIT Internal Medicine; ATTEND Internal Medicine
DX: I48.91 Unspecified atrial fibrillation (principal); Z68.43 Body mass index [BMI] 50.0-59.9, adult; N30.00 Acute cystitis without hematuria; Z20.828 Contact with and (suspected) exposure to other viral communicable diseases; E66.01 Morbid (severe) obesity due to excess calories; E11.9 Type 2 diabetes mellitus without complications; E78.5 Hyperlipidemia, unspecified; I10 Essential (primary) hypertension; D64.9 Anemia, unspecified; F41.9 Anxiety disorder, unspecified; F32.9 Major depressive disorder, single episode, unspecified; Z88.2 Allergy status to sulfonamides; Z87.891 Personal history of nicotine dependence; Z79.84 Long term (current) use of oral hypoglycemic drugs; Z79.899 Other long term (current) drug therapy
CPT/HCPCS: 36415; 36416; 71045; 80053; 81003; 81015; 83036; 83880; 84443; 84484; 85025; 85379; 87077; 87086; 87635; 93005; 93306; 96365; 96366; 96372; 96375; J0282; J0696; J1650; J3490; J7070; U0003

== ENCOUNTER 2020-08-19 07:04 | Emergency (ER) | payer OTHER, SELFPAY ==
[2020-08-19] MEDS ORDERED: Acetaminophen 500 MG TAB ONE (07:38)
[2020-08-19] MEDS ORDERED: Ondansetron PF 4 MG/2 ML Vial ONE (07:38)
[2020-08-19 08:04] LABS: #Eosinphils 0.1 thou/uL (0.0-0.7); #Lymphocytes 1.8 thou/uL (1.20-3.40); #Monocytes 0.4 thou/uL (0.11-0.59); #Neutrophils 4.3 thou/uL (1.40-6.50); %Basophils 0.4 % (0.0-1.0); %Eosinophils 1.1 % (0.0-10.0); %Lymphocytes 27.1 % (21.0-51.0); %Monocytes 6.2 % (0.0-10.0); %Neutrophils 65.1 % (42.0-75.0); Hemoglobin 12.1 g/dL (12.0-16.0); Mean Corpuscular Hemoglobin 24.7 pg (27.0-31.0); Mean Corpuscular Volume 79.9 fL (78.0-98.0); Mean Platelet Volume 8.4 fL (7.4-10.4); Platelet Count 314 thou/uL (130-400); RBC Distribution Width 14.8 % (11.5-14.5); Red Blood Cell (RBC) Count 4.91 mill/uL (4.20-5.40); White Blood Cell (WBC) Count 6.6 thou/uL (4.8-10.8)
[2020-08-19 08:11] LABS: Bacteria/HPF None Seen HPF (None Seen); Bilirubin Negative (Negative); Blood, Urine 3+ (Negative); Clarity Clear (Clear); Glucose, Urine (Dipstick) Normal (Negative); Ketone, Urine Negative (Negative); Leukocyte Negative Leu/uL (Negative); Nitrite Negative (Negative); Protein, Urine (Dipstick) 50 mg/dL (Neg-Trace); RBC/HPF Greater than 50 HPF (0-3); Squamous Epithelial 0-3 HPF (0-3); Urobilinogen Normal mg/dL (Less than 2); WBC/HPF 0-3 HPF (0-3); pH, Urine 5.5 (5.0-9.0)
[2020-08-19 08:26] LABS: ALT (SGPT) 17 U/L (8-55); AST (SGOT) 14 U/L (5-34); Albumin 4.5 g/dL (3.5-5.0); Alkaline Phosphatase 88 U/L (40-110); Anion Gap 12 mmol/L (10-20); BUN (Urea Nitrogen) 14 mg/dL (7.0-18.7); Bilirubin, Total 0.3 mg/dL (0.2-1.2); Calc. Creatinine Clearance 0 mL/min (70-130); Calcium 9.3 mg/dL (7.8-10.44); Carbon Dioxide 31 mmol/L (22-29); Chloride 101 mmol/L (98-107); Glucose 158 mg/dL (70-105); Potassium 3.4 mmol/L (3.5-5.1); Protein, Total 7.5 g/dL (6.0-8.3); Sodium 141 mmol/L (136-145)
[2020-08-19] MEDS ORDERED: Ketorolac Tromethamine 30 MG/ML VIAL ONE (08:49)
[2020-08-19 08:52] LABS: BHCG - Serum Negative (NEGATIVE); Pregs Control Background? CLEAR/WHITE (CLR/WHITE); Pregs Control Bar Appear? YES (CONTROL BAR)
== END 2020-08-19 09:19 | disposition home or self-care (01) ==
LOC: ERS 07:04
DX: S33.5XXA Sprain of ligaments of lumbar spine, initial encounter (principal); E11.9 Type 2 diabetes mellitus without complications; I48.91 Unspecified atrial fibrillation; I10 Essential (primary) hypertension; Z87.891 Personal history of nicotine dependence; Z79.899 Other long term (current) drug therapy
CPT/HCPCS: 74176; 80053; 81003; 81015; 84703; 85025; 87086; 94760; 96374; 96375; J1885; J2405

== ENCOUNTER 2021-03-13 03:15 | Emergency (ER) | payer SELFPAY ==
[2021-03-13 04:11] LABS: Bilirubin Negative (Negative); Blood, Urine Negative (Negative); Clarity Clear (Clear); Glucose, Urine (Dipstick) Normal (Negative); Ketone, Urine Negative (Negative); Leukocyte 75 Leu/uL (Negative); Nitrite Negative (Negative); Protein, Urine (Dipstick) 30 mg/dL (Neg-Trace); RBC/HPF 0-3 HPF (0-3); Specific Gravity, Urine 1.029 (1.002-1.036); Squamous Epithelial 0-3 HPF (0-3); Urobilinogen Normal mg/dL (Less than 2); pH, Urine 5.5 (5.0-9.0)
[2021-03-13 06:55] LABS: #Eosinphils 0.1 thou/uL (0.0-0.7); #Lymphocytes 2.4 thou/uL (1.20-3.40); #Monocytes 0.4 thou/uL (0.11-0.59); #Neutrophils 3.8 thou/uL (1.40-6.50); %Basophils 0.7 % (0.0-1.0); %Eosinophils 1.7 % (0.0-10.0); %Lymphocytes 36.1 % (21.0-51.0); %Monocytes 6.1 % (0.0-10.0); %Neutrophils 55.5 % (42.0-75.0); Hemoglobin 11.8 g/dL (12.0-16.0); Mean Corpuscular HGB CONC 31.1 g/dL (32.0-36.0); Mean Corpuscular Hemoglobin 24.5 pg (27.0-31.0); Mean Corpuscular Volume 78.8 fL (78.0-98.0); Mean Platelet Volume 8.7 fL (7.4-10.4); Platelet Count 320 thou/uL (130-400); RBC Distribution Width 15.6 % (11.5-14.5); Red Blood Cell (RBC) Count 4.82 mill/uL (4.20-5.40); White Blood Cell (WBC) Count 6.8 thou/uL (4.8-10.8)
[2021-03-13 07:18] LABS: ALT (SGPT) 19 U/L (8-55); AST (SGOT) 16 U/L (5-34); Albumin 4.3 g/dL (3.5-5.0); Alkaline Phosphatase 85 U/L (40-110); Anion Gap 14 mmol/L (10-20); BUN (Urea Nitrogen) 15 mg/dL (7.0-18.7); Bilirubin, Total 0.4 mg/dL (0.2-1.2); Calc. Creatinine Clearance 0 mL/min (70-130); Calcium 9.7 mg/dL (7.8-10.44); Carbon Dioxide 26 mmol/L (22-29); Chloride 103 mmol/L (98-107); Globulin 3.1 g/dL (2.4-3.5); Glucose 130 mg/dL (70-105); Potassium 3.5 mmol/L (3.5-5.1); Protein, Total 7.4 g/dL (6.0-8.3); Sodium 139 mmol/L (136-145)
[2021-03-13 07:19] LABS: Lipase 20 U/L (8-78)
== END 2021-03-13 10:16 | disposition home or self-care (01) ==
LOC: ERS 03:15
DX: N39.0 Urinary tract infection, site not specified (principal); I10 Essential (primary) hypertension; E11.9 Type 2 diabetes mellitus without complications; E78.5 Hyperlipidemia, unspecified; I48.91 Unspecified atrial fibrillation; Z79.84 Long term (current) use of oral hypoglycemic drugs; Z79.899 Other long term (current) drug therapy; Z79.01 Long term (current) use of anticoagulants
CPT/HCPCS: 36415; 74176; 80053; 81003; 81015; 83690; 85025; 87077; 87086

== ENCOUNTER 2021-06-29 17:09 | Emergency (ER) | payer SELFPAY ==
[2021-06-29 17:58] LABS: Bilirubin Negative (Negative); Blood, Urine 2+ (Negative); Clarity Turbid (Clear); Glucose, Urine (Dipstick) Normal (Negative); Ketone, Urine Negative (Negative); Leukocyte 500 Leu/uL (Negative); Nitrite Negative (Negative); Protein, Urine (Dipstick) 20 mg/dL (Neg-Trace); Specific Gravity, Urine 1.022 (1.002-1.036); Urobilinogen Normal mg/dL (Less than 2)
[2021-06-29 17:59] LABS: Squamous Epithelial 0-3 HPF (0-3)
[2021-06-29 18:07] LABS: Bacteria/HPF Rare-Few HPF (None Seen); WBC/HPF 21-50 HPF (0-3)
== END 2021-06-29 20:42 | disposition home or self-care (01) ==
LOC: ERS 17:09
DX: N39.0 Urinary tract infection, site not specified (principal); I10 Essential (primary) hypertension; E78.5 Hyperlipidemia, unspecified; E11.9 Type 2 diabetes mellitus without complications; I48.91 Unspecified atrial fibrillation; Z79.84 Long term (current) use of oral hypoglycemic drugs; Z79.899 Other long term (current) drug therapy
CPT/HCPCS: 81003; 81015; 87086; 99283

== ENCOUNTER 2023-04-30 13:02 | Outpatient (CLI) | payer OTHER | END 2023-04-30 13:03 | disposition home or self-care (01) | LOC: BICRAD 13:02 | PROVIDERS: ATTEND Family Medicine | DX: M25.511 Pain in right shoulder (principal) ==